=== PATIENT | male | born 1960 | race Caucasian/White ===

== ENCOUNTER 2017-01-29 00:33 | Emergency (ER) | payer MEDICAID ==
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
[2017-01-29] MEDS ORDERED: HYDROCODONE/ACETAMINOPHEN 5-325 MG 6 TAB/DSPK PO PRN (02:16)
[2017-01-29 02:44] VITALS: BP 151/67
== END 2017-01-29 02:43 | disposition home or self-care (01) ==
LOC: ER 00:33
DX: S02.411A LeFort I fracture, initial encounter for closed fracture (principal); W50.0XXA Accidental hit or strike by another person, initial encounter; Y92.009 Unspecified place in unspecified non-institutional (private) residence as the place of occurrence of the external cause; F17.200 Nicotine dependence, unspecified, uncomplicated
CPT/HCPCS: 70450; 70486; 99284